=== PATIENT | male | born 2000 | race Hispanic/Latino ===

== ENCOUNTER 2022-06-28 19:39 | Emergency (ER) | payer BC, OTHER ==
[~2022-06-28] VITALS: Ht 185.4 cm; Wt 86.2 kg
[2022-06-28] MEDS ORDERED: IBUP-2071 PO (20:14)
[2022-06-28] MEDS ORDERED: CEPH500B PO (20:14)
[2022-06-28] MEDS ORDERED: IBUPROFEN 800 MG TAB PO ONE (20:30)
[2022-06-28] MEDS ORDERED: CEPHALEXIN 500 MG CAPSULE PO ONE (20:30)
[2022-06-28 20:36] VITALS: BP 124/62
== END 2022-06-28 20:48 | disposition home or self-care (01) ==
LOC: EDH 19:39
DX: S61.212A Laceration without foreign body of right middle finger without damage to nail, initial encounter (principal); Z90.89 Acquired absence of other organs; X58.XXXA Exposure to other specified factors, initial encounter; Y93.89 Activity, other specified; Y92.89 Other specified places as the place of occurrence of the external cause; Y99.8 Other external cause status

== ENCOUNTER 2023-04-23 22:10 | Emergency (ER) | payer OTHER ==
[~2023-04-23] VITALS: Ht 185.4 cm; Wt 83.5 kg
[~2023-04-23 22:10] MED LIST: CEPH500B PO; IBUP-2071 PO
[2023-04-23 22:36] VITALS: BP 126/73; PULSE 88; RESP 16; O2SAT 97
[2023-04-23] MEDS: DOXYCYCLINE HYCLATE 100 MG TABLET PO SCH (22:39)
[2023-04-23] MEDS ORDERED: DOXY100T2 PO (22:39)
== END 2023-04-23 23:05 | disposition home or self-care (01) ==
LOC: EDH 22:10
DX: S60.811A Abrasion of right wrist, initial encounter (principal); Z98.890 Other specified postprocedural states; W55.03XA Scratched by cat, initial encounter; Y93.89 Activity, other specified; Y92.89 Other specified places as the place of occurrence of the external cause; Y99.8 Other external cause status